=== PATIENT | female | born 1950 | race Caucasian/White ===

== ENCOUNTER → 2017-06-04 | Outpatient (CLI) | payer MEDICARE, BC ==
[~2017-06-04] MED LIST: FUROSEMIDE 20 MG/2 ML VIAL (J1940) As Ordered ONE
--- NOTE | 2017-06-04 12:36 | REP ---
RENAL NUCLEAR SCAN WITH FLOW AND FUNCTION, LASIX ADMINISTRATION: Nuclear GFR evaluation. Following the intravenous administration of 8.6 millicuries technetium 99m MAG 3, immediate flow images are obtained in the posterior projection showing prompt and symmetrical perfusion bilaterally. Delayed renal function images are performed for 30 minutes in the posterior projection. The kidneys are normal in size and position. No parenchymal defect is seen. There is bilateral symmetrical excretion. There is mild bilateral pelvic caliectasis noted. There is gradual washout from both kidneys with no evidence of delayed nephrogram. Split function is 47.7% on the left and 52.3% on the right. [id number] is minutes on the left and 2 minutes on the right. T-1/2 is 13.7 minutes on the left and 14.7 minutes on the right. Renal function curves are slightly shallow in their downward slopes. Lasix was then given intravenously, 20 mg, and further imaging performed for 21 minutes. There is complete clearance of radiotracer from both pelvicaliceal systems indicating no evidence of urinary tract obstruction. There is mild postvoid residual in the urinary bladder after voiding. Evaluation of GFR is performed following the intravenous administration of 3.2 millicuries technetium 99m DTPA. There is bilateral symmetrical uptake in both kidneys. Split function is 49.3% on the left and 50.7% on the right. GFR is calculated on the left to be 50.2 mL per minute and on the right 51.7 mL per minute or a total of 101.9 mL per minute. Normalized GFR per patient body surface area is 87.7 mL per minute. Signed by Eyad Melendez MD 06/04/2017 05:36 P
== END ==
LOC: M RAD 09:24
PROVIDERS: ATTEND Urology
DX: Q62.11 Congenital occlusion of ureteropelvic junction (principal)
CPT/HCPCS: 78708; A9539; A9562; J1940

== ENCOUNTER → 2019-03-04 | Outpatient (CLI) | payer OTHER ==
--- NOTE | 2019-03-05 02:47 | REP ---
Clinical: Acute bronchitis. Comparison: 03/12/2016 . Technique: PA and lateral. Findings: The mediastinum and cardiac silhouette are normal. The lung miller are clear and without acute consolidation, effusion, or pneumothorax. 1 cm calcified granuloma in the left lower lobe remains stable. The skeletal structures are intact and normal. Impression: 1. No acute cardiopulmonary process. Electronically Signed by El Hooper MD 03/05/2019 02:39 A
== END ==
LOC: M SMT 09:34
PROVIDERS: ATTEND Internal Medicine Pulmonary Disease
DX: Z87.09 Personal history of other diseases of the respiratory system (principal)

== ENCOUNTER → 2020-06-27 | Outpatient (REF) | payer MEDICARE, BC, OTHER | LOC: M LAB REF 10:45 | PROVIDERS: ATTEND Dermatology | DX: L72.0 Epidermal cyst (principal) | CPT/HCPCS: 11102; 17110; 88304; G0463 ==

== ENCOUNTER → 2021-01-13 | Outpatient (CLI) | payer MEDICARE, OTHER | END | disposition home or self-care (01) | LOC: M LABSMTC 10:09 | PROVIDERS: ATTEND Internal Medicine Gastroenterology | DX: Z11.52 Encounter for screening for COVID-19 (principal) ==

== ENCOUNTER → 2021-05-21 | Outpatient (REF) | payer MEDICARE, OTHER | LOC: M LAB REF 13:47 | PROVIDERS: ATTEND Physician Assistant | DX: C44.722 Squamous cell carcinoma of skin of right lower limb, including hip (principal); C44.729 Squamous cell carcinoma of skin of left lower limb, including hip | CPT/HCPCS: 11102; 11103; 17110; 88305; G0463 ==

== ENCOUNTER → 2021-07-06 | Outpatient (CLI) | payer OTHER, MEDICARE ==
--- NOTE | 2021-07-06 12:22 | REP ---
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 COMPARISON: 03/04/2019 TECHNIQUE: Two views FINDINGS: calcified granuloma left lower lobe unchanged when compared with previous studies. The lungs are free of active parenchymal disease. The heart is not enlarged. There is no failure. IMPRESSION: No active process. No interval change. <Electronically signed by Bobo Grimm > 07/06/21 0618
== END ==
LOC: M PLAIMG 11:29
PROVIDERS: ATTEND Internal Medicine Pulmonary Disease
DX: Z57.39 Occupational exposure to other air contaminants (principal)

== ENCOUNTER → 2021-07-13 | Outpatient (CLI) | payer MEDICARE, OTHER ==
--- NOTE | 2021-07-13 16:10 | REPMRS ---
Patient History The patient states she had a clinical breast exam in April 2021. Patient has history of other cancer at age 71. Family history of colorectal cancer at age 50 or over in mother, prostate cancer at age 50 or over in father, endometrial cancer at age 50 or over in daughter. Reductions of both breasts, 1980. Taking estrogen for 2 years. Patient states no breast complaints today. Patient has signed MRS History Sheet. Digital Woman Screen Mammo: July 13, 2021 - Exam #: [id number] Bilateral CC and MLO view(s) were taken. Technologist: Michelle Villafuerte, Technologist Prior study comparison: May 05, 2020, bilateral digital mammo screening bilat, performed at [email or web address]. April 09, 2019, bilateral digital mammo screening bilat, performed at [facility]. FINDINGS: There are scattered fibroglandular densities. Screening. Digital screening (2D) mammography was performed bilaterally in the CC and MLO projections. Additionally, breast tomosynthesis (3D mammography) was performed bilaterally in the CC and MLO projections. Todays exam was compared to the prior exam/exams. By history, the patient has no complaints of a palpable breast abnormality or other significant breast complaints. The breasts are unchanged in size and shape.There is stable post-procedural internal architectural distortion. There are no sriram-soft tissue densities or spiculated masses. There is no new internal architectural distortion. There are no suspicious sriram-calcific clusters. Skin thickening or nipple retraction is not present. IMPRESSION: The Volpara volumetric breast density category is B, there are scattered areas of fibroglandular densities. BI-RADS Category 2- Benign Findings. There is no evidence of malignant alteration of the breasts. Followup examination recommended in one year. The lifetime Tyrer-Cuzick score is 4.4 % This mammogram was read with the assistance of [employer],an FDA approved computer aided detection system for mammography. Negative x-ray reports should not delay surgical consultation if a dominant or clinically suspicious mass is present. Not all breast cancers can be identified by mammography. Therefore, we recommend that you continue to perform regular breast self-examination and physical examination and then promptly contact your physician of any concerns or changes. Adenosis and dense breasts may obscure an underlying neoplasm. Assessment: BI-RADS/ACR category 2 mammogram. Benign Findings. Recommendation Routine screening mammogram of both breasts in 1 year. Electronically Signed By: Munir Bryant DO 07/13/21 2030
== END ==
LOC: M WHC 14:51
PROVIDERS: ATTEND Nurse Practitioner Adult Health
DX: Z12.31 Encounter for screening mammogram for malignant neoplasm of breast (principal); Z80.0 Family history of malignant neoplasm of digestive organs; Z80.42 Family history of malignant neoplasm of prostate; Z80.49 Family history of malignant neoplasm of other genital organs

== ENCOUNTER → 2022-07-12 | Outpatient (CLI) | payer MEDICARE, OTHER | LOC: M WHC 13:41 | PROVIDERS: ATTEND Family Medicine | DX: Z12.31 Encounter for screening mammogram for malignant neoplasm of breast (principal) ==

== ENCOUNTER 2022-08-20 18:34 | Inpatient (IN) | payer MEDICARE, OTHER ==
[~2022-08-20] VITALS: Ht 162.6 cm; Wt 65.2 kg
[2022-08-20] MEDS ORDERED: NS 1,000 ML IV ONE (20:05)
[2022-08-20] MEDS ORDERED: ONDANSETRON 4MG 2ML VIAL IV ONE (20:05)
[2022-08-20 20:07] LABS: BASO % 0.8 % (0.0-1.0); EOS # 0.1 10^3/uL (0.0-0.5); EOS % 2.6 % (0.0-3.0); HEMATOCRIT 41.8 % (36.0-47.0); HEMOGLOBIN 13.9 g/dl (12.0-15.5); LYMPH # 1.4 10^3/uL (1.5-5.0); LYMPH % 26.7 % (24.0-44.0); MEAN CORPUSCULAR HEMOGLOBIN 32.1 pg (27.0-33.0); MEAN CORPUSCULAR HGB CONC 33.3 g/dl (32.0-36.5); MEAN CORPUSCULAR VOLUME 96.5 fl (80.0-96.0); MONO # 0.4 10^3/uL (0.0-0.8); NEUTROPHILS # 3.3 10^3/uL (1.5-8.5); NEUTROPHILS % 62.7 % (36.0-66.0); PLATELET COUNT, AUTOMATED 107 10^3/uL (150-450); RED BLOOD COUNT 4.33 10^6/uL (4.00-5.40); WHITE BLOOD COUNT 5.3 10^3/uL (4.0-10.0)
[2022-08-20 20:46] LABS: ACETAMINOPHEN LEVEL < 2.0 UG/ML (10.0-30.0); ALBUMIN 3.4 GM/DL (3.2-5.2); ALT/SGPT 36 U/L (12-78); BILIRUBIN,DIRECT 0.5 MG/DL (0.0-0.2); BILIRUBIN,TOTAL 1.9 MG/DL (0.2-1.0); BLOOD UREA NITROGEN 15 MG/DL (7-18); CALCIUM LEVEL 8.8 MG/DL (8.8-10.2); CARBON DIOXIDE LEVEL 24 MEQ/L (21-32); CHLORIDE LEVEL 112 MEQ/L (98-107); CREATININE FOR GFR 0.63 MG/DL (0.55-1.30); ETHYL ALCOHOL (ETHANOL) < 0.003 % (0.000-0.010); GLOMERULAR FILTRATION RATE > 60.0 (>39); GLUCOSE, FASTING 95 MG/DL (70-100); POTASSIUM SERUM 3.5 MEQ/L (3.5-5.1); SALICYLATE LEVEL < 1.7 MG/DL (5.0-30.0); SODIUM LEVEL 142 MEQ/L (136-145); TOTAL PROTEIN 6.7 GM/DL (6.4-8.2)
[2022-08-20 20:55] LABS: AMPHETAMINES LEVEL URINE NEGATIVE (NEGATIVE); BARBITURATES URINE NEGATIVE (NEGATIVE); BENZODIAZEPINES URINE NEGATIVE (NEGATIVE); CANNABINOIDS URINE NEGATIVE (NEGATIVE); COCAINE METABOLITE URINE NEGATIVE (NEGATIVE); METHADONE URINE NEGATIVE (NEGATIVE); OPIATES URINE NEGATIVE (NEGATIVE); PHENCYCLIDINE URINE NEGATIVE (NEGATIVE)
[2022-08-20] MEDS ORDERED: IPRATROPIUM 0.5MG/ALBUTEROL 2.5MG INH SOL UD 3ML (DUONEB) NEB ONE (21:25)
[2022-08-21] MEDS ORDERED: UNRESOLVED CLARIFICATION ENTRY XX SCH (00:01)
[2022-08-21] MEDS ORDERED: POTA1TAB23 PO (09:40)
[2022-08-21] MEDS ORDERED: VENTAER INH (09:40)
[2022-08-21] MEDS ORDERED: EMGA120I INJ (09:40)
[2022-08-21] MEDS ORDERED: LIVA2TAB PO (09:40)
[2022-08-21] MEDS ORDERED: NADO40TA PO (09:40)
[2022-08-21] MEDS ORDERED: PANT40TA29 PO (09:40)
[2022-08-21] MEDS ORDERED: ALLO300T2 PO (09:40)
[2022-08-21] MEDS ORDERED: BREO1INH3 INH (09:40)
[2022-08-21] MEDS ORDERED: HOME MED LIST COMPLETE! XX SCH (09:40)
[2022-08-21] MEDS ORDERED: FURO20TA2 PO (09:40)
[2022-08-21] MEDS ORDERED: ZONI100C67 PO (09:40)
[2022-08-21] MEDS ORDERED: ACETAMINOPHEN TAB 650MG DOSE (2X325MG) PO PRN (22:40)
[2022-08-21] MEDS ORDERED: MOM 30ML SUSPENSION UDC PO PRN (22:40)
[2022-08-21] MEDS ORDERED: traZODone 50 MG TAB PO PRN (22:40)
[2022-08-21] MEDS ORDERED: MAALOX 30 ML SUSP *UDC PO PRN (22:40)
[2022-08-21] MEDS ORDERED: ALBUTEROL 90 MCG/ACT 8GM HFA INHALER INH PRN (22:45)
[2022-08-21 23:15] VITALS: BP 157/91
[2022-08-22] MEDS: NADOLOL 20MG TABLET PO SCH ×2 (00:09→21:32)
[2022-08-22] MEDS: ZONISAMIDE 100 MG CAP (ZONEGRAN) PO SCH ×2 (00:09→21:30)
[2022-08-22] MEDS: allopurinoL 300 MG TAB PO SCH ×2 (00:09→21:30)
[2022-08-22] MEDS: PANTOPRAZOLE 40MG TAB (PROTONIX) PO SCH ×3 (00:10→21:32)
[2022-08-22] MEDS: POTASSIUM CHLORIDE 10MEQ SR TABLET PO SCH ×2 (00:10→21:32)
[2022-08-22] MEDS: FUROSEMIDE 20 MG TAB PO SCH (09:07)
[2022-08-22 18:13] VITALS: BP 111/67
[2022-08-22] MEDS: ADVAIR HFA 230/21MCG INHALER INH SCH (22:22)
[2022-08-23 06:28] VITALS: BP 90/54
[2022-08-23] MEDS: ADVAIR HFA 230/21MCG INHALER INH SCH ×2 (08:33→21:30)
[2022-08-23] MEDS: PANTOPRAZOLE 40MG TAB (PROTONIX) PO SCH ×2 (08:33→21:30)
[2022-08-23] MEDS: FUROSEMIDE 20 MG TAB PO SCH (08:33)
[2022-08-23] MEDS: ESCITALOPRAM OXALATE 10 MG TAB (LEXAPRO) PO SCH (13:00)
[2022-08-23 18:00] VITALS: BP 130/77
[2022-08-23] MEDS: POTASSIUM CHLORIDE 10MEQ SR TABLET PO SCH (21:30)
[2022-08-23] MEDS: ZONISAMIDE 100 MG CAP (ZONEGRAN) PO SCH (21:30)
[2022-08-23] MEDS: allopurinoL 300 MG TAB PO SCH (21:31)
[2022-08-23] MEDS: NADOLOL 20MG TABLET PO SCH (21:31)
[2022-08-24 06:21] VITALS: BP 128/78
[2022-08-24] MEDS: FUROSEMIDE 20 MG TAB PO SCH (08:43)
[2022-08-24] MEDS: ESCITALOPRAM OXALATE 10 MG TAB (LEXAPRO) PO SCH (08:43)
[2022-08-24] MEDS: PANTOPRAZOLE 40MG TAB (PROTONIX) PO SCH ×2 (08:43→20:52)
[2022-08-24] MEDS: ADVAIR HFA 230/21MCG INHALER INH SCH ×2 (08:45→20:52)
[2022-08-24 16:18] VITALS: BP 142/82
[2022-08-24] MEDS ORDERED: [UNRECOGNIZED DRUG - OTHER] OU PRN (19:05)
[2022-08-24] MEDS: POTASSIUM CHLORIDE 10MEQ SR TABLET PO SCH (20:52)
[2022-08-24] MEDS: ZONISAMIDE 100 MG CAP (ZONEGRAN) PO SCH (20:52)
[2022-08-24] MEDS: allopurinoL 300 MG TAB PO SCH (20:52)
[2022-08-24] MEDS: NADOLOL 20MG TABLET PO SCH (20:53)
[2022-08-25 06:46] VITALS: BP 101/59
[2022-08-25] MEDS: FUROSEMIDE 20 MG TAB PO SCH (07:28)
[2022-08-25] MEDS: PANTOPRAZOLE 40MG TAB (PROTONIX) PO SCH ×2 (07:28→20:25)
[2022-08-25] MEDS: ADVAIR HFA 230/21MCG INHALER INH SCH ×2 (07:29→20:24)
[2022-08-25] MEDS: ESCITALOPRAM OXALATE 10 MG TAB (LEXAPRO) PO SCH (07:29)
[2022-08-25 16:19] VITALS: BP 127/59
[2022-08-25] MEDS ORDERED: POLYVINYL ALCOHOL OPHTH SOLN 15 ML(LIQUITEARS) OU PRN (19:05)
[2022-08-25] MEDS: ZONISAMIDE 100 MG CAP (ZONEGRAN) PO SCH (20:24)
[2022-08-25] MEDS: POTASSIUM CHLORIDE 10MEQ SR TABLET PO SCH (20:25)
[2022-08-25 20:27] VITALS: BP 127/59
[2022-08-25] MEDS: NADOLOL 20MG TABLET PO SCH (20:27)
[2022-08-25] MEDS: allopurinoL 300 MG TAB PO SCH (20:46)
[2022-08-25] MEDS ORDERED: LACRILUBE (AKWA TEARS) OPHTH OINT 3.5 GM OU SCH (21:00)
[2022-08-26] MEDS ORDERED: UNRESOLVED CLARIFICATION ENTRY XX SCH (00:01)
[2022-08-26 06:40] VITALS: BP 134/3
[2022-08-26] MEDS: ADVAIR HFA 230/21MCG INHALER INH SCH (08:00)
[2022-08-26] MEDS: FUROSEMIDE 20 MG TAB PO SCH (08:17)
[2022-08-26] MEDS: PANTOPRAZOLE 40MG TAB (PROTONIX) PO SCH (08:17)
[2022-08-26] MEDS: ESCITALOPRAM OXALATE 10 MG TAB (LEXAPRO) PO SCH (08:17)
[2022-08-26] MEDS ORDERED: LEXA1TAB PO (10:32)
== END 2022-08-26 11:30 | disposition home or self-care (01) | DRG 880 ==
LOC: EDBD 18:34 → M ED 18:34 → M ED INP 08-21 22:38 → M PSY 08-21 23:07
PROVIDERS: ADMIT Psychiatry & Neurology Psychiatry; ATTEND Student in an Organized Health Care Education/Training Program
DX: F43.0 Acute stress reaction (principal); I85.00 Esophageal varices without bleeding; F43.21 Adjustment disorder with depressed mood; Z91.51 Personal history of suicidal behavior; K75.81 Nonalcoholic steatohepatitis (NASH); E78.5 Hyperlipidemia, unspecified; I10 Essential (primary) hypertension; M10.9 Gout, unspecified; G43.909 Migraine, unspecified, not intractable, without status migrainosus; I25.10 Atherosclerotic heart disease of native coronary artery without angina pectoris; Z90.79 Acquired absence of other genital organ(s); Z87.891 Personal history of nicotine dependence; Z79.899 Other long term (current) drug therapy; Z88.6 Allergy status to analgesic agent; Z88.8 Allergy status to other drugs, medicaments and biological substances; J45.909 Unspecified asthma, uncomplicated; Z63.4 Disappearance and death of family member; Z63.0 Problems in relationship with spouse or partner

== ENCOUNTER → 2022-10-31 | Outpatient (CLI) | payer MEDICARE, OTHER ==
[~2022-10-31] MED LIST changes: +ALLO300T2 PO; +BREO1INH3 INH; +EMGA120I INJ; +FURO20TA2 PO; -FUROSEMIDE 20 MG/2 ML VIAL (J1940) As Ordered ONE; +LEXA1TAB PO; +LIVA2TAB PO; +NADO40TA PO; +PANT40TA29 PO; +POTA1TAB23 PO; +VENTAER INH; +ZONI100C67 PO
== END ==
LOC: M PLAIMG 13:46
PROVIDERS: ATTEND Internal Medicine Pulmonary Disease
DX: Z87.09 Personal history of other diseases of the respiratory system (principal); J98.4 Other disorders of lung; J68.3 Other acute and subacute respiratory conditions due to chemicals, gases, fumes and vapors

== ENCOUNTER → 2023-05-23 | Outpatient (CLI) | payer MEDICARE, OTHER | LOC: M RAD 07:33 | DX: G30.9 Alzheimer's disease, unspecified (principal); I10 Essential (primary) hypertension ==

== ENCOUNTER → 2023-06-20 | Outpatient (CLI) | payer MEDICARE, OTHER | LOC: M RAD 15:35 | PROVIDERS: ATTEND Internal Medicine Gastroenterology | DX: K75.81 Nonalcoholic steatohepatitis (NASH) (principal); K74.60 Unspecified cirrhosis of liver; Z98.1 Arthrodesis status; M47.892 Other spondylosis, cervical region ==

== ENCOUNTER → 2023-07-14 | Outpatient (CLI) | payer MEDICARE, OTHER | LOC: M WHC 15:17 | PROVIDERS: ATTEND Nurse Practitioner Family | DX: Z12.31 Encounter for screening mammogram for malignant neoplasm of breast (principal) ==

== ENCOUNTER → 2024-07-21 | Outpatient (CLI) | payer MEDICARE ==
[~2024-07-21] MED LIST changes: -NADO40TA PO; +NADO40TA6 PO
== END ==
LOC: M WHC 11:14
PROVIDERS: ATTEND Nurse Practitioner Family
DX: Z12.31 Encounter for screening mammogram for malignant neoplasm of breast (principal)
CPT/HCPCS: 77063; 77067; G0101

== ENCOUNTER → 2025-07-21 | Outpatient (CLI) | payer MEDICARE ==
[~2025-07-21] MED LIST changes: +NADO40TA40 PO; -NADO40TA6 PO
== END ==
LOC: M WHC 13:55
PROVIDERS: ATTEND Family Medicine
DX: Z12.31 Encounter for screening mammogram for malignant neoplasm of breast (principal); N95.1 Menopausal and female climacteric states; M81.0 Age-related osteoporosis without current pathological fracture; R92.313 Mammographic fatty tissue density, bilateral breasts